=== PATIENT | female | born 1990 | race American Indian/Alaskan Native ===

== ENCOUNTER 2017-04-20 13:59 | Emergency (ER) | payer BC, MEDICAID ==
[2017-04-20 13:59] VITALS: BMI 22.6
[2017-04-20 14:10] VITALS: TEMP 97.7; O2SAT 99
--- NOTE | 2017-04-20 15:39 | C.PDOC ---
History Of Present Illness 27 year old female presents to the ED for evaluation of left lower wisdom tooth pain which began 2 days ago. Patient also complains of swelling and pain to throat that is radiating to her left ear. Patient states it appears like there is a "hole" in her tooth. Patient has been taking over the counter Ibuprofen for pain. Patient denies fever, chills. Time Seen by Provider: 04/20/17 15:01 Chief Complaint (Nursing): Dental Pain History Per: Patient History/Exam Limitations: no limitations Onset/Duration Of Symptoms: Days (2) Current Symptoms Are (Timing): Still Present Quality: Positive for: "Pain" Additional History Per: Patient Past Medical History Reviewed: Historical Data, Nursing Documentation, Vital Signs Vital Signs: Last Vital Signs Temp 97.7 F 04/20/17 14:08 Pulse 68 04/20/17 16:08 Resp 20 04/20/17 16:08 BP 110/68 04/20/17 16:08 Pulse Ox 99 04/20/17 16:36 - Medical History PMH: Sexually Transmitted Disease (chlamydia) Denies: Chronic Kidney Disease Surgical History: No Surg Hx Family History: States: Unknown Family Hx - Social History Hx Alcohol Use: Yes Hx Substance Use: No - Immunization History Hx Tetanus Toxoid Vaccination: No Hx Influenza Vaccination: No Hx Pneumococcal Vaccination: No Review Of Systems Constitutional: Negative for: Fever, Chills ENT: Positive for: Mouth Pain (left lower wisdom tooth ) Physical Exam - Physical Exam Appears: Non-toxic, No Acute Distress Skin: Normal Color, Warm, Dry Head: No Swelling (facial ) Oral Mucosa: Moist Teeth: Other (partially erupted left lower wisdom tooth that is angulated with lower side facing tongue with small layer gum overlying tooth surface. difficult to visualize entire surface of tooth ) Gingiva: Erythema (over left wisdom tooth ) Throat: Normal, No Erythema, No Exudate Neck: Supple Neurological/Psych: Oriented x3, Normal Speech, Normal Cognition ED Course And Treatment O2 Sat by Pulse Oximetry: 99 (on RA ) Pulse Ox Interpretation: Normal Progress Note: Tyleno PO administered. Disposition Counseled Patient/Family Regarding: Diagnosis, Need For Followup, Rx Given - Disposition Disposition: HOME/ ROUTINE Disposition Time: 15:53 Condition: STABLE Additional Instructions: Please take antibiotics as prescribed. Take Tylenol 1000 mg or ibuprofen 600 mg by mouth for pain every 6 hours if needed. Do not eat on painful side. Gargle with warm salty water after eating. Follow up with a dentist as soon as possible. Prescriptions: Amoxicillin 500 mg PO TID #21 tablet Instructions: Toothache (ED) Forms: [facility] (Turkmen), General Discharge Instructions - Clinical Impression Clinical Impression: Toothache - PA / NETWORK TECHNICAL ANALYST / Resident Statement MD/DO has reviewed & agrees with the documentation as recorded. - Scribe Statement The provider has reviewed the documentation as recorded by the Scribe (Nisha Sands) All medical record entries made by the Scribe were at my direction and personally dictated by me. I have reviewed the chart and agree that the record accurately reflects my personal performance of the history, physical exam, medical decision making, and the department course for this patient. I have also personally directed, reviewed, and agree with the discharge instructions and disposition.
[2017-04-20 16:08] VITALS: BP 110/68; PULSE 68; RESP 20
== END 2017-04-20 16:11 | disposition home or self-care (01) ==
LOC: C.ER 13:59
DX: K08.89 Other specified disorders of teeth and supporting structures (principal)

== ENCOUNTER 2017-06-29 13:10 | Emergency (ER) | payer BC, MEDICAID ==
[2017-06-29 13:11] VITALS: BMI 22.6
[2017-06-29 13:36] VITALS: RESP 18; TEMP 98.1; O2SAT 100
--- NOTE | 2017-06-29 15:48 | C.PDOC ---
History Of Present Illness 27 y/o female presents to ED with complaints of tampon being stuck in her cervix. Patient states she put tampon in and does not remember taking it out, is concerned tampon is stuck in her cervix. Patient denies abdominal pain, vaginal bleeding, dysuria, or any other complaints at this time. Time Seen by Provider: 06/29/17 15:14 Chief Complaint (Nursing): Female Genitourinary History Per: Patient History/Exam Limitations: no limitations Onset/Duration Of Symptoms: Days Current Symptoms Are (Timing): Still Present Past Medical History Reviewed: Historical Data, Nursing Documentation, Vital Signs Vital Signs: Last Vital Signs Temp 98.1 F 06/29/17 13:27 Pulse 49 L 06/29/17 15:53 Resp 18 06/29/17 15:53 BP 103/65 06/29/17 15:53 Pulse Ox 100 06/29/17 15:53 - Medical History PMH: Sexually Transmitted Disease (chlamydia) Surgical History: No Surg Hx Family History: States: No Known Family Hx - Social History Hx Alcohol Use: Yes Hx Substance Use: No - Immunization History Hx Tetanus Toxoid Vaccination: No Hx Influenza Vaccination: No Hx Pneumococcal Vaccination: No Review Of Systems Constitutional: Negative for: Fever, Chills Gastrointestinal: Negative for: Abdominal Pain Genitourinary: Negative for: Dysuria, Hematuria, Vaginal Discharge, Vaginal Bleeding Skin: Negative for: Rash Physical Exam - Physical Exam Appears: Non-toxic, No Acute Distress Skin: Warm, Dry, No Rash Head: Atraumatic, Normacephalic Oral Mucosa: Moist Neck: Normal ROM, Supple Cardiovascular: Rhythm Regular Respiratory: Normal Breath Sounds, No Rales, No Rhonchi, No Wheezing Gastrointestinal/Abdominal: Soft, No Tenderness, No Guarding, No Rebound Pelvic: Normal External Exam, Vaginal Bleeding, No Vaginal Discharge, No Cervix Open, Other (No foreign body noted) Neurological/Psych: Oriented x3 ED Course And Treatment O2 Sat by Pulse Oximetry: 100 (ra) Pulse Ox Interpretation: Normal Medical Decision Making Medical Decision Making: vaginal speculam exam none- blld in vault, no fb noted. digital exam done. no fb palpated Disposition Counseled Patient/Family Regarding: Diagnosis, Need For Followup - Disposition Disposition: HOME/ ROUTINE Disposition Time: 15:47 Condition: STABLE Additional Instructions: Please follow up with your scuba diver in the next week. Please pay attention to tampons, should not keep tampon in for more than 3-4 hours. Forms: [facility] (Kyrgyz), General Discharge Instructions - Clinical Impression Clinical Impression: Normal pelvic exam, Menstruation - PA / ELECTRONIC COMMUNICATIONS TECHNICIAN / Resident Statement MD/DO has reviewed & agrees with the documentation as recorded. - Scribe Statement The provider has reviewed the documentation as recorded by the Domitila Mendes All medical record entries made by the Domitila were at my direction and personally dictated by me. I have reviewed the chart and agree that the record accurately reflects my personal performance of the history, physical exam, medical decision making, and the department course for this patient. I have also personally directed, reviewed, and agree with the discharge instructions and disposition.
[2017-06-29 15:54] VITALS: BP 103/65; PULSE 49
== END 2017-06-29 15:55 | disposition home or self-care (01) ==
LOC: C.ER 13:10
DX: Z04.8 Encounter for examination and observation for other specified reasons (principal)